=== PATIENT | female | born 1985 | race American Indian/Alaskan Native ===

== ENCOUNTER 2018-09-08 13:01 | Observation (INO) | payer MEDICARE, MEDICAID ==
--- NOTE | 2018-09-08 14:01 | C.PDOC ---
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 Patient describes headache as a pulling sensation over her left eye. Patient states that she was in [place] visiting family over the past month at which time she ran out of her medication Keppra and began taking another medication of unknown name in [place]. She states that she has never had a seizure, but was taking Keppra as a precaution following her stroke. She also notes burning mid CP and involuntary tongue curling. Patient wears a brace on her left leg and arm is contracted as a result of her stroke. Patient denies any SOB, nausea, vomiting, diarrhea, or dizziness. Time Seen by Provider: 09/08/18 13:49 Chief Complaint (Nursing): Dizziness/Lightheaded History Per: Patient History/Exam Limitations: no limitations Onset/Duration Of Symptoms: Days (1 month ) Current Symptoms Are (Timing): Still Present Recent travel outside of the [place]: Yes ([place]) Additional History Per: Patient Past Medical History Reviewed: Historical Data, Nursing Documentation, Vital Signs Vital Signs: Last Vital Signs Temp 98.5 F 09/08/18 13:10 Pulse 103 H 09/08/18 13:10 Resp 20 09/08/18 13:10 BP 158/115 H 09/08/18 13:10 Pulse Ox 100 09/08/18 13:10 - Medical History PMH: CVA (2013) Denies: Chronic Kidney Disease Surgical History: No Surg Hx Family History: States: No Known Family Hx - Social History Hx Tobacco Use: No Hx Alcohol Use: No Hx Substance Use: No - Immunization History Hx Influenza Vaccination: No Hx Pneumococcal Vaccination: No Review Of Systems Cardiovascular: Positive for: Chest Pain (burning mid chest ) Respiratory: Negative for: Shortness of Breath Gastrointestinal: Negative for: Nausea, Vomiting, Diarrhea Neurological: Positive for: Headache (pulling sensation over left eye). Negative for: Dizziness Physical Exam - Physical Exam Appears: Non-toxic, Other (Anxious and tearful ) Skin: Normal Color, Warm, Dry Head: Atraumatic, Normacephalic Eye(s): bilateral: Normal Inspection Ear(s): Bilateral: Normal Nose: Normal Oral Mucosa: Moist Neck: Normal ROM, Supple Chest: Symmetrical, No Deformity Cardiovascular: Rhythm Regular, No Murmur Respiratory: Normal Breath Sounds, No Rales, No Rhonchi, No Wheezing Gastrointestinal/Abdominal: Soft, No Tenderness, No Guarding, No Rebound, Other (obese) Neurological/Psych: Oriented x3, Other (nuerologically diminshed use of left arm and left leg ) ED Course And Treatment - Laboratory Results Result Diagrams: 09/08/18 14:46 09/08/18 15:30 ECG Rhythm: Sinus Tachycardia Interpretation Of ECG: No ST elevation or depression Rate From EC O2 Sat by Pulse Oximetry: 100 (on RA) Pulse Ox Interpretation: Normal - CT Scan/US CT Head Other Rad Studies (CT/US): Read By Radiologist, Radiology Report Reviewed CT/US Interpretation: IMPRESSION: No acute intracranial findings appreciable at this time by standard CT criteria. Follow-up CT or MRI are available if clinically warranted. Chronic infarct of subdistribution right MCA reiterated. Medical Decision Making Medical Decision Making: Plan: CAT Head, EKG, Bloodwork, Urinalysis ordered and reviewed. Norvasc 10mg PO and IV Fluids administered. Discussed with Dr. Hurd. Agreed that patient had odd presentation and is requesting to admit to OBS under hospitalist with Dr. Christie ([employer]) and (Neurologist). Impression: Rule out stroke Manage hypertension Evaluated for acute coronary syndrome Obs for 24 hours Disposition Discussed With DrElin: Wes Bartholomew - Disposition Disposition: HOSPITALIZED Disposition Time: 16:05 Condition: GUARDED Forms: [facility] (Sammarinese) - POA Present On Arrival: None - Clinical Impression Clinical Impression: Hypertensive urgency - Scribe Statement The provider has reviewed the documentation as recorded by the Josieibjairo Nava All medical record entries made by the Josieibjairo were at my direction and personally dictated by me. I have reviewed the chart and agree that the record accurately reflects my personal performance of the history, physical exam, medical decision making, and the department course for this patient. I have also personally directed, reviewed, and agree with the discharge instructions and disposition. Decision To Admit - Pt Status Changed To: Hospital Disposition Of: Observation - InPatient: Physician Admission Certification: I certify that this patient requires 2 or more midnights of care for the following reason:: hypertensive urgency with head ache and chest pain - . Bed Request Type: Telemetry Patient Diagnosis: Hypertensive urgency
[2018-09-08] MEDS ORDERED: Sodium Chloride 0.9% 1,000 ML IV SCH (14:15)
--- NOTE | 2018-09-08 14:43 | CT ---
Date of service: 09/08/2018 PROCEDURE: CT HEAD WITHOUT CONTRAST. HISTORY: htn, head ache COMPARISON: Brain MRI without and with contrast 02/24/2014. TECHNIQUE: Axial computed tomography images were obtained through the head/brain without intravenous contrast. Radiation dose: Total exam DLP = 1197.85 mGy-cm. This CT exam was performed using one or more of the following dose reduction techniques: Automated exposure control, adjustment of the mA and/or kV according to patient size, and/or use of iterative reconstruction technique. FINDINGS: HEMORRHAGE: No intracranial hemorrhage. BRAIN: Chronic lobar infarction at the right MCA distribution is reiterated without significant interval change. No positive mass effect is appreciated although, instead there is ex vacuo expansion of the right lateral ventricle mildly and limited rightward shift of the midline structures due to volume loss of the right cerebral hemisphere and a sub distribution of the right MCA. Posterior fossa contents are stable and unremarkable. Small bilateral basal ganglia calcifications are reiterated. No suspicious extra-axial fluid collection is identified. VENTRICLES: Unremarkable. No hydrocephalus. CALVARIUM: Unremarkable. PARANASAL SINUSES: Unremarkable as visualized. No significant inflammatory changes. MASTOID AIR CELLS: Unremarkable as visualized. No inflammatory changes. OTHER FINDINGS: None. IMPRESSION: No acute intracranial findings appreciable at this time by standard CT criteria. Follow-up CT or MRI are available if clinically warranted. Chronic infarct of subdistribution right MCA reiterated.
[2018-09-08 14:48] LABS: SQUAMOUS EPITHIAL 5 /hpf (0-5); URINE BILIRUBIN NEGATIVE (NEGATIVE); URINE BLOOD NEGATIVE (NEGATIVE); URINE CLARITY Hazy (Clear); URINE COLOR Yellow (YELLOW); URINE GLUCOSE (UA) NORMAL (Normal); URINE LEUKOCYTE ESTERASE NEG Leu/uL (Negative); URINE PROTEIN 1+ mg/dL (NEGATIVE); URINE UROBILINOGEN NORMAL mg/dL (0.2-1.0)
[2018-09-08 14:50] LABS: BASO # 0.1 K/uL (0.0-0.2); BASO % 1.1 % (0.0-2.0); EOS # 0.1 K/uL (0.0-0.7); EOS % 1.6 % (0.0-4.0); HEMOGLOBIN 12.4 g/dL (11.0-16.0); LYMPH # 1.8 K/uL (1.0-4.3); LYMPH % 34.2 % (20.0-40.0); MEAN CORPUSCULAR HEMOGLOBIN 27.6 pg (27.0-31.0); MEAN CORPUSCULAR HGB CONC 31.9 g/dL (33.0-37.0); MEAN PLATELET VOLUME 8.6 fL (7.2-11.7); MONO # 0.4 K/uL (0.0-0.8); MONO % 8.2 % (0.0-10.0); NEUT # 2.8 K/uL (1.8-7.0); NEUT % 54.9 % (50.0-75.0); NRBC % 0.1 % (0.0-2.0); RBC 4.5 Mil/uL (3.80-5.20); RED CELL DISTRIBUTION WIDTH 13.8 % (11.5-14.5); WHITE BLOOD COUNT 5.2 K/uL (4.8-10.8)
[2018-09-08 14:56] LABS: MEAN CELL VOLUME 86.6 fL (81.0-99.0)
[2018-09-08 15:09] LABS: BARBITURATES, UR NEGATIVE (NEGATIVE); BENZODIAZEPINES, UR NEGATIVE (NEGATIVE); OPIATES, UR NEGATIVE (NEGATIVE); PHENCYCLIDINE, UR NEGATIVE (NEGATIVE)
[2018-09-08 15:33] LABS: INR 1.1
[2018-09-08 15:40] LABS: ALB/GLOB RATIO 1.2 (1.0-2.1); ALBUMIN 4.7 g/dL (3.5-5.0); BLOOD UREA NITROGEN 11 mg/dL (7-17); GFR NON-AFRICAN AMERICAN > 60
[2018-09-08 15:41] LABS: ALT/SGPT 20 U/L (9-52); AST/SGOT 34 U/L (14-36)
--- NOTE | 2018-09-08 17:17 | CP.PCM.HP ---
<Wolf Khan - Last Filed: 09/08/18 17:36> History of Present Illness - History of Present Illness History of Present Illness: PGY-1 Medicine H&P for Dr. Bartholomew's service CC: elevated blood pressure at Dr. Hurd's office HPI: Patient is a 32 yo female w/ PMH of stroke comes to ED for evaluation of elevated blood pressure, chest pain, dizziness, and headache. Patient states she was at Dr. Hurd's office who checked her blood pressure and it was above 180 and he requested patient come to emergency room. During examination, patient stated she was dizzy but resolved on its own within a few minutes. Patient's pmd asked patient be evaulated by hospital neurologist and internal consultant for the chest pain she complained of during triage. Patient denied headaches, chest pain, sob, n/v, constipation or diarrhea, and dysuria. PMH- Stroke PSH- Denies FH- Denies Meds- Aspirin 81mg, Keppra 500 bid Alls- NKDA Social- Denies etoh, tobacco, and drug use PMD- Dr. Hurd Code- Full code Present on Admission - Present on Admission Any Indicators Present on Admission: No Review of Systems - Review of Systems Review of Systems: 12 point ROS obtained and noted as in HPI Past Patient History - Past Medical History & Family History Past Medical History?: Yes - Past Social History Smoking Status: Never Smoked - CARDIAC Hx Cardiac Disorders: No - PULMONARY Hx Respiratory Disorders: No - NEUROLOGICAL Hx Neurological Disorder: Yes HX Cerebrovascular Accident: Yes (Left sided residual weakness) - HEENT Hx HEENT Problems: No - RENAL Hx Chronic Kidney Disease: No - ENDOCRINE/METABOLIC Hx Endocrine Disorders: No - HEMATOLOGICAL/ONCOLOGICAL Hx Blood Disorders: No - INTEGUMENTARY Hx Dermatological Problems: No - MUSCULOSKELETAL/RHEUMATOLOGICAL Hx Musculoskeletal Disorders: No - GASTROINTESTINAL Hx Gastrointestinal Disorders: No - GENITOURINARY/GYNECOLOGICAL Hx Genitourinary Disorders: Yes Other/Comment: fibroid uterus - PSYCHIATRIC Hx Substance Use: No - SURGICAL HISTORY Hx Surgeries: No - ANESTHESIA Hx Anesthesia: Yes Hx Anesthesia Reactions: No Hx Malignant Hyperthermia: No Meds Allergies/Adverse Reactions: Allergies Allergy/AdvReac Type Severity Reaction Status Date / Time No Known Allergies Allergy Verified 12/19/13 17:53 Physical Exam - Constitutional Appears: Non-toxic, No Acute Distress - Head Exam Head Exam: NORMAL INSPECTION, NORMOCEPHALIC - Eye Exam Eye Exam: EOMI, Normal appearance. absent: Nystagmus, Scleral icterus - ENT Exam ENT Exam: Mucous Membranes Moist - Respiratory Exam Respiratory Exam: Clear to Auscultation Bilateral, NORMAL BREATHING PATTERN. absent: Rales, Rhonchi, Wheezes - Cardiovascular Exam Cardiovascular Exam: REGULAR RHYTHM, +S1, +S2. absent: Tachycardia - GI/Abdominal Exam GI & Abdominal Exam: Normal Bowel Sounds, Soft. absent: Diminished Bowel Sounds, Distended, Firm, Guarding, Tenderness - Extremities Exam Additional comments: brace on left leg left arm internally rotated and flexed muscle strength testing in bilateral hips 5/5, bilateral arms 5/5, plantar/dorsiflexion 4/5 - Back Exam Back exam: NORMAL INSPECTION. absent: CVA tenderness (L), CVA tenderness (R) - Neurological Exam Neurological exam: Alert, Oriented x3 - Psychiatric Exam Psychiatric exam: Normal Affect, Normal Mood - Skin Skin Exam: Dry, Intact, Normal Color Results - Vital Signs Recent Vital Signs: Last Vital Signs Temp 98.5 F 09/08/18 13:10 Pulse 67 09/08/18 16:58 Resp 16 09/08/18 16:58 BP 159/105 H 09/08/18 16:58 Pulse Ox 100 09/08/18 16:58 - Labs Result Diagrams: 09/08/18 14:46 09/08/18 15:30 Labs: Laboratory Results - last 24 hr 09/08/18 09/08/18 09/08/18 14:16 14:25 14:41 WBC RBC Hgb Hct MCV MCH MCHC RDW Plt Count MPV Neut % (Auto) Lymph % (Auto) [place] % (Auto) Eos % (Auto) Baso % (Auto) Neut # (Auto) Lymph # (Auto) [place] # (Auto) Eos # (Auto) Baso # (Auto) PT 12.0 INR 1.1 APTT 30 Sodium Potassium Chloride Carbon Dioxide Anion Gap BUN Creatinine Est GFR ( Amer) Est GFR (Non-Af Amer) POC Glucose (mg/dL) 114 H Random Glucose Calcium Phosphorus Total Bilirubin AST ALT Alkaline Phosphatase Troponin I Total Protein Albumin Globulin Albumin/Globulin Ratio Free T4 Urine Color Yellow Urine Clarity Hazy Urine pH 6.0 Ur Specific [place] 1.019 Urine Protein 1+ H Urine Glucose (UA) Normal Urine Ketones Negative Urine Blood Negative Urine Nitrate Negative Urine Bilirubin Negative Urine Urobilinogen Normal Ur Leukocyte Esterase Neg Urine WBC (Auto) 2 Urine RBC (Auto) 3 Ur Squamous Epith Cells 5 Urine Opiates Screen Urine Methadone Screen Ur Barbiturates Screen Ur Phencyclidine Scrn Ur Amphetamines Screen U Benzodiazepines Scrn U Oth Cocaine Metabols U Cannabinoids Screen Alcohol, Quantitative 09/08/18 09/08/18 09/08/18 14:41 14:46 15:30 WBC 5.2 RBC 4.50 Hgb 12.4 Hct 39.0 MCV 86.6 D MCH 27.6 MCHC 31.9 L RDW 13.8 Plt Count 399 MPV 8.6 Neut % (Auto) 54.9 Lymph % (Auto) 34.2 [place] % (Auto) 8.2 Eos % (Auto) 1.6 Baso % (Auto) 1.1 Neut # (Auto) 2.8 Lymph # (Auto) 1.8 [place] # (Auto) 0.4 Eos # (Auto) 0.1 Baso # (Auto) 0.1 PT INR APTT Sodium 140 Potassium 3.8 Chloride 106 Carbon Dioxide 25 Anion Gap 13 BUN 11 Creatinine 0.8 Est GFR ( Amer) > 60 Est GFR (Non-Af Amer) > 60 POC Glucose (mg/dL) Random Glucose 108 H Calcium 9.0 Phosphorus 2.8 Total Bilirubin 0.6 AST 34 ALT 20 Alkaline Phosphatase 80 Troponin I 0.0150 Total Protein 8.6 H Albumin 4.7 Globulin 3.9 Albumin/Globulin Ratio 1.2 Free T4 Urine Color Urine Clarity Urine pH Ur Specific [place] Urine Protein Urine Glucose (UA) Urine Ketones Urine Blood Urine Nitrate Urine Bilirubin Urine Urobilinogen Ur Leukocyte Esterase Urine WBC (Auto) Urine RBC (Auto) Ur Squamous Epith Cells Urine Opiates Screen Negative Urine Methadone Screen Negative Ur Barbiturates Screen Negative Ur Phencyclidine Scrn Negative Ur Amphetamines Screen Negative U Benzodiazepines Scrn Negative U Oth Cocaine Metabols Negative U Cannabinoids Screen Negative Alcohol, Quantitative < 10 09/08/18 16:41 WBC RBC Hgb Hct MCV MCH MCHC RDW Plt Count MPV Neut % (Auto) Lymph % (Auto) [place] % (Auto) Eos % (Auto) Baso % (Auto) Neut # (Auto) Lymph # (Auto) [place] # (Auto) Eos # (Auto) Baso # (Auto) PT INR APTT Sodium Potassium Chloride Carbon Dioxide Anion Gap BUN Creatinine Est GFR ( Amer) Est GFR (Non-Af Amer) POC Glucose (mg/dL) Random Glucose Calcium Phosphorus Total Bilirubin AST ALT Alkaline Phosphatase Troponin I Total Protein Albumin Globulin Albumin/Globulin Ratio Free T4 0.94 Urine Color Urine Clarity Urine pH Ur Specific [place] Urine Protein Urine Glucose (UA) Urine Ketones Urine Blood Urine Nitrate Urine Bilirubin Urine Urobilinogen Ur Leukocyte Esterase Urine WBC (Auto) Urine RBC (Auto) Ur Squamous Epith Cells Urine Opiates Screen Urine Methadone Screen Ur Barbiturates Screen Ur Phencyclidine Scrn Ur Amphetamines Screen U Benzodiazepines Scrn U Oth Cocaine Metabols U Cannabinoids Screen Alcohol, Quantitative Assessment & Plan - Assessment and Plan (Free Text) Assessment: Patient is a 32 yo female w/ PMH of stroke admitted to hospital for hypertensive urgency. HTN urgency DBP>110, no evidence of end organ damage on labs Norvasc 10mg x 1 given in ed Norvasc 10mg daily starting in AM repeat cbc/cmp in am headache, dizziness, and chest pain resolved Chest pain Cardiology Consulted as per Dr. Hurd EKG normal sinus rhythm, Initial troponin negative EKG x 2 pending, Troponin x 2 pending Hx of stroke Neurology Consulted as per Dr. Hurd Aspirin 81mg po daily Keppra 500mg po bid ppx CT head negative for acute stroke, shows old stroke (see full report) GI ppx: Pepcid 20mg po DVT ppx: Heparin 5000 units q12 Tylenol PRN for headaches PGY-1 Wolf Khan Medical Management discussed with Dr. Bartholomew <Wes Bartholomew - Last Filed: 09/08/18 19:08> Results - Vital Signs Recent Vital Signs: Last Vital Signs Temp 98.5 F 09/08/18 13:10 Pulse 67 09/08/18 16:58 Resp 16 09/08/18 16:58 BP 159/105 H 09/08/18 16:58 Pulse Ox 100 09/08/18 16:58 - Labs Result Diagrams: 09/08/18 14:46 09/08/18 15:30 Labs: Laboratory Results - last 24 hr 09/08/18 09/08/18 09/08/18 14:16 14:25 14:41 WBC RBC Hgb Hct MCV MCH MCHC RDW Plt Count MPV Neut % (Auto) Lymph % (Auto) [place] % (Auto) Eos % (Auto) Baso % (Auto) Neut # (Auto) Lymph # (Auto) [place] # (Auto) Eos # (Auto) Baso # (Auto) PT 12.0 INR 1.1 APTT 30 Sodium Potassium Chloride Carbon Dioxide Anion Gap BUN Creatinine Est GFR ( Amer) Est GFR (Non-Af Amer) POC Glucose (mg/dL) 114 H Random Glucose Calcium Phosphorus Total Bilirubin AST ALT Alkaline Phosphatase Troponin I Total Protein Albumin Globulin Albumin/Globulin Ratio Free T4 TSH 3rd Generation Urine Color Yellow Urine Clarity Hazy Urine pH 6.0 Ur Specific [place] 1.019 Urine Protein 1+ H Urine Glucose (UA) Normal Urine Ketones Negative Urine Blood Negative Urine Nitrate Negative Urine Bilirubin Negative Urine Urobilinogen Normal Ur Leukocyte Esterase Neg Urine WBC (Auto) 2 Urine RBC (Auto) 3 Ur Squamous Epith Cells 5 Urine Opiates Screen Urine Methadone Screen Ur Barbiturates Screen Ur Phencyclidine Scrn Ur Amphetamines Screen U Benzodiazepines Scrn U Oth Cocaine Metabols U Cannabinoids Screen Alcohol, Quantitative 09/08/18 09/08/18 09/08/18 14:41 14:46 15:30 WBC 5.2 RBC 4.50 Hgb 12.4 Hct 39.0 MCV 86.6 D MCH 27.6 MCHC 31.9 L RDW 13.8 Plt Count 399 MPV 8.6 Neut % (Auto) 54.9 Lymph % (Auto) 34.2 [place] % (Auto) 8.2 Eos % (Auto) 1.6 Baso % (Auto) 1.1 Neut # (Auto) 2.8 Lymph # (Auto) 1.8 [place] # (Auto) 0.4 Eos # (Auto) 0.1 Baso # (Auto) 0.1 PT INR APTT Sodium 140 Potassium 3.8 Chloride 106 Carbon Dioxide 25 Anion Gap 13 BUN 11 Creatinine 0.8 Est GFR ( Amer) > 60 Est GFR (Non-Af Amer) > 60 POC Glucose (mg/dL) Random Glucose 108 H Calcium 9.0 Phosphorus 2.8 Total Bilirubin 0.6 AST 34 ALT 20 Alkaline Phosphatase 80 Troponin I 0.0150 Total Protein 8.6 H Albumin 4.7 Globulin 3.9 Albumin/Globulin Ratio 1.2 Free T4 TSH 3rd Generation 3.79 Urine Color Urine Clarity Urine pH Ur Specific [place] Urine Protein Urine Glucose (UA) Urine Ketones Urine Blood Urine Nitrate Urine Bilirubin Urine Urobilinogen Ur Leukocyte Esterase Urine WBC (Auto) Urine RBC (Auto) Ur Squamous Epith Cells Urine Opiates Screen Negative Urine Methadone Screen Negative Ur Barbiturates Screen Negative Ur Phencyclidine Scrn Negative Ur Amphetamines Screen Negative U Benzodiazepines Scrn Negative U Oth Cocaine Metabols Negative U Cannabinoids Screen Negative Alcohol, Quantitative < 10 09/08/18 16:41 WBC RBC Hgb Hct MCV MCH MCHC RDW Plt Count MPV Neut % (Auto) Lymph % (Auto) [place] % (Auto) Eos % (Auto) Baso % (Auto) Neut # (Auto) Lymph # (Auto) [place] # (Auto) Eos # (Auto) Baso # (Auto) PT INR APTT Sodium Potassium Chloride Carbon Dioxide Anion Gap BUN Creatinine Est GFR ( Amer) Est GFR (Non-Af Amer) POC Glucose (mg/dL) Random Glucose Calcium Phosphorus Total Bilirubin AST ALT Alkaline Phosphatase Troponin I Total Protein Albumin Globulin Albumin/Globulin Ratio Free T4 0.94 TSH 3rd Generation Urine Color Urine Clarity Urine pH Ur Specific [place] Urine Protein Urine Glucose (UA) Urine Ketones Urine Blood Urine Nitrate Urine Bilirubin Urine Urobilinogen Ur Leukocyte Esterase Urine WBC (Auto) Urine RBC (Auto) Ur Squamous Epith Cells Urine Opiates Screen Urine Methadone Screen Ur Barbiturates Screen Ur Phencyclidine Scrn Ur Amphetamines Screen U Benzodiazepines Scrn U Oth Cocaine Metabols U Cannabinoids Screen Alcohol, Quantitative Attending/Attestation - Attestation I have personally seen and examined this patient.: Yes I have fully participated in the care of the patient.: Yes I have reviewed all pertinent clinical information: Yes Notes (Text): 09/08/18 19:07 Patient was seen and examined in the ER with resident Dr. Khan. History, Physical, Assessment and Plan, and orders were gone over with Dr. Khan. Plan of care was also explained to patient. Wes Bartholomew D.O.
[2018-09-08] MEDS ORDERED: Labetalol 25mg/5ml Syringe IVP ONE (19:00)
[2018-09-09 00:39] VITALS: RESP 20
[2018-09-09 04:04] LABS: BASO % 0.6 % (0.0-2.0); EOS % 0.9 % (0.0-4.0); HEMOGLOBIN 12.4 g/dL (11.0-16.0); LYMPH # 1.5 K/uL (1.0-4.3); LYMPH % 28.1 % (20.0-40.0); MEAN CELL VOLUME 86.3 fL (81.0-99.0); MEAN CORPUSCULAR HEMOGLOBIN 27.7 pg (27.0-31.0); MEAN CORPUSCULAR HGB CONC 32.1 g/dL (33.0-37.0); MEAN PLATELET VOLUME 8.2 fL (7.2-11.7); MONO # 0.5 K/uL (0.0-0.8); MONO % 8.9 % (0.0-10.0); NEUT # 3.3 K/uL (1.8-7.0); NEUT % 61.5 % (50.0-75.0); NRBC % 0.1 % (0.0-2.0); RBC 4.48 Mil/uL (3.80-5.20); RED CELL DISTRIBUTION WIDTH 13.7 % (11.5-14.5); WHITE BLOOD COUNT 5.3 K/uL (4.8-10.8)
[2018-09-09 04:37] LABS: LDL CHOLESTEROL 127 mg/dL (0-129)
[2018-09-09 04:51] LABS: ALB/GLOB RATIO 1.3 (1.0-2.1); ALBUMIN 4.2 g/dL (3.5-5.0); ALT/SGPT 20 U/L (9-52); AST/SGOT 20 U/L (14-36); BLOOD UREA NITROGEN 9 mg/dL (7-17); CALCIUM 8.9 mg/dl (8.6-10.4); GFR NON-AFRICAN AMERICAN > 60; HDL CHOLESTEROL 44 mg/dL (30-70)
[2018-09-09 07:44] VITALS: TEMP 98.6; O2SAT 100
[2018-09-09 09:04] VITALS: BP 140/75; PULSE 96
--- NOTE | 2018-09-09 11:40 | CARD ---
APPROVED REPORT Date of service: 09/09/2018 EKG Measurement Heart [id number] <Conclusion> Sinus tachycardia Nonspecific T wave abnormality Abnormal ECG
--- NOTE | 2018-09-09 11:42 | CARD ---
APPROVED REPORT Date of service: 09/08/2018 EKG Measurement Heart [id number] <Conclusion> Sinus tachycardia Otherwise normal ECG
--- NOTE | 2018-09-09 14:05 | CP.PCM.DIS ---
Provider - Provider Date of Admission: 09/08/18 16:06 Attending physician: Wes Bartholomew MD Time Spent in preparation of Discharge (in minutes): 45 Diagnosis - Discharge Diagnosis (1) Hypertensive urgency Status: Acute Hospital Course - Lab Results Lab Results: Most Recent Lab Values WBC 5.3 K/uL (4.8-10.8) 09/09/18 04:01 RBC 4.48 Mil/uL (3.80-5.20) 09/09/18 04:01 Hgb 12.4 g/dL (11.0-16.0) 09/09/18 04:01 Hct 38.7 % (34.0-47.0) 09/09/18 04:01 MCV 86.3 fL (81.0-99.0) 09/09/18 04:01 MCH 27.7 pg (27.0-31.0) 09/09/18 04:01 MCHC 32.1 g/dL (33.0-37.0) L 09/09/18 04:01 RDW 13.7 % (11.5-14.5) 09/09/18 04:01 Plt Count 357 K/uL (130-400) 09/09/18 04:01 MPV 8.2 fL (7.2-11.7) 09/09/18 04:01 Neut % (Auto) 61.5 % (50.0-75.0) 09/09/18 04:01 Lymph % (Auto) 28.1 % (20.0-40.0) 09/09/18 04:01 [place] % (Auto) 8.9 % (0.0-10.0) 09/09/18 04:01 Eos % (Auto) 0.9 % (0.0-4.0) 09/09/18 04:01 Baso % (Auto) 0.6 % (0.0-2.0) 09/09/18 04:01 Neut # (Auto) 3.3 K/uL (1.8-7.0) 09/09/18 04:01 Lymph # (Auto) 1.5 K/uL (1.0-4.3) 09/09/18 04:01 [place] # (Auto) 0.5 K/uL (0.0-0.8) 09/09/18 04:01 Eos # (Auto) 0.0 K/uL (0.0-0.7) 09/09/18 04:01 Baso # (Auto) 0.0 K/uL (0.0-0.2) 09/09/18 04:01 PT 12.0 SECONDS (9.7-12.2) 09/08/18 14:25 INR 1.1 09/08/18 14:25 APTT 30 SECONDS (21-34) 09/09/18 04:01 Sodium 140 mmol/L (132-148) 09/09/18 04:05 Potassium 3.6 mmol/L (3.6-5.2) 09/09/18 04:05 Chloride 107 mmol/L (98-107) 09/09/18 04:05 Carbon Dioxide 25 mmol/L (22-30) 09/09/18 04:05 Anion Gap 11 (10-20) 09/09/18 04:05 BUN 9 mg/dL (7-17) 09/09/18 04:05 Creatinine 0.7 mg/dL (0.7-1.2) 09/09/18 04:05 Est GFR ( Amer) > 60 09/09/18 04:05 Est GFR (Non-Af Amer) > 60 09/09/18 04:05 POC Glucose (mg/dL) 114 mg/dL (65-110) H 09/08/18 14:16 Random Glucose 107 mg/dL (65-105) H 09/09/18 04:05 Calcium 8.9 mg/dl (8.6-10.4) 09/09/18 04:05 Phosphorus 4.2 mg/dL (2.5-4.5) 09/09/18 04:05 Magnesium 1.8 mg/dL (1.6-2.3) 09/09/18 04:05 Total Bilirubin 0.3 mg/dL (0.2-1.3) 09/09/18 04:05 AST 20 U/L (14-36) 09/09/18 04:05 ALT 20 U/L (9-52) 09/09/18 04:05 Alkaline Phosphatase 72 U/L (38-126) 09/09/18 04:05 Troponin I < 0.0120 ng/mL (0.00-0.120) 09/09/18 04:05 Total Protein 7.5 g/dL (6.3-8.3) 09/09/18 04:05 Albumin 4.2 g/dL (3.5-5.0) 09/09/18 04:05 Globulin 3.3 gm/dL (2.2-3.9) 09/09/18 04:05 Albumin/Globulin Ratio 1.3 (1.0-2.1) 09/09/18 04:05 Triglycerides 124 mg/dL (0-149) 09/09/18 04:05 Cholesterol 217 mg/dL (0-199) H 09/09/18 04:05 LDL Cholesterol Direct 127 mg/dL (0-129) 09/09/18 04:05 HDL Cholesterol 44 mg/dL (30-70) 09/09/18 04:05 Free T4 0.94 ng/dL (0.78-2.19) 09/08/18 16:41 TSH 3rd Generation 3.79 mIU/L (0.46-4.68) 09/08/18 15:30 Urine Color Yellow (YELLOW) 09/08/18 14:41 Urine Clarity Hazy (Clear) 09/08/18 14:41 Urine pH 6.0 (5.0-8.0) 09/08/18 14:41 Ur Specific [place] 1.019 (1.003-1.030) 09/08/18 14:41 Urine Protein 1+ mg/dL (NEGATIVE) H 09/08/18 14:41 Urine Glucose (UA) Normal mg/dL (Normal) 09/08/18 14:41 Urine Ketones Negative mg/dL (NEGATIVE) 09/08/18 14:41 Urine Blood Negative (NEGATIVE) 09/08/18 14:41 Urine Nitrate Negative (NEGATIVE) 09/08/18 14:41 Urine Bilirubin Negative (NEGATIVE) 09/08/18 14:41 Urine Urobilinogen Normal mg/dL (0.2-1.0) 09/08/18 14:41 Ur Leukocyte Esterase Neg Jessica/uL (Negative) 09/08/18 14:41 Urine WBC (Auto) 2 /hpf (0-5) 09/08/18 14:41 Urine RBC (Auto) 3 /hpf (0-3) 09/08/18 14:41 Ur Squamous Epith Cells 5 /hpf (0-5) 09/08/18 14:41 Urine Opiates Screen Negative (NEGATIVE) 09/08/18 14:41 Urine Methadone Screen Negative (NEGATIVE) 09/08/18 14:41 Ur Barbiturates Screen Negative (NEGATIVE) 09/08/18 14:41 Ur Phencyclidine Scrn Negative (NEGATIVE) 09/08/18 14:41 Ur Amphetamines Screen Negative (NEGATIVE) 09/08/18 14:41 U Benzodiazepines Scrn Negative (NEGATIVE) 09/08/18 14:41 U Oth Cocaine Metabols Negative (NEGATIVE) 09/08/18 14:41 U Cannabinoids Screen Negative (NEGATIVE) 09/08/18 14:41 Alcohol, Quantitative < 10 mg/dl (0-10) 09/08/18 15:30 - Hospital Course Hospital Course: Upon Admission Patient is a 32 yo female w/ PMH of stroke comes to ED for evaluation of elevated blood pressure, chest pain, dizziness, and headache. Patient states she was at Dr. Hurd's office who checked her blood pressure and it was above 180 and he requested patient come to emergency room. During examination, patient stated she was dizzy but resolved on its own within a few minutes. Patient's pmd asked patient be evaulated by hospital neurologist and front end specialist for the chest pain she complained of during triage. Patient denied headaches, chest pain, sob, n/v, constipation or diarrhea, and dysuria. Hospital Course Patient is a 32 yo AA female admitted for HTN urgency. Patient was started on amlodipine in ED. Patient's blood pressure decreased about 20 percent. Next day patient was discharged after repeat blood pressures were under control Discharge Plan The following instructions were explained to patient and a copy will need to be provided to her upon discharge: 1). Schedule follow up with your Primary Care Physician Dr. Hurd to take place in the next 7 to 14 days for a remeasurement of your blood pressure and for coordination of your health care. 2). Follow up with your Neurologist as already planned on 09/21/18 for your history of Stroke and Seizure Prophylaxis. 3). Please have the following prescriptions filled at your pharmacy on your way home from the hospital and take as directed: Aspirin 81 mg, 1 tablet by mouth 1x/day (8 AM) Keppra 500 mg, 1 tablet by mouth 2x/day (8 AM and 8 PM) Atorvastatin 10 mg, 1 tablet by mouth 1x/day (8 PM) Norvasc 10 mg, 1 tablet by mouth 1x/day (8 AM) 4). 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 Good luck and good work to you. Please take care. Wes Bartholomew D.O. Discharge Exam - Additional Findings Additional findings: - Constitutional Appears: Non-toxic, No Acute Distress - Head Exam Head Exam: NORMAL INSPECTION, NORMOCEPHALIC - Eye Exam Eye Exam: EOMI, Normal appearance. absent: Nystagmus, Scleral icterus - ENT Exam ENT Exam: Mucous Membranes Moist - Respiratory Exam Respiratory Exam: Clear to Auscultation Bilateral, NORMAL BREATHING PATTERN. absent: Rales, Rhonchi, Wheezes - Cardiovascular Exam Cardiovascular Exam: REGULAR RHYTHM, +S1, +S2. absent: Tachycardia - GI/Abdominal Exam GI & Abdominal Exam: Normal Bowel Sounds, Soft. absent: Diminished Bowel Sounds, Distended, Firm, Guarding, Tenderness - Extremities Exam Additional comments: brace on left leg left arm internally rotated and flexed muscle strength testing in bilateral hips 5/5, bilateral arms 5/5, plantar/dorsiflexion 4/5 - Back Exam Back exam: NORMAL INSPECTION. absent: CVA tenderness (L), CVA tenderness (R) - Neurological Exam Neurological exam: Alert, Oriented x3 - Psychiatric Exam Psychiatric exam: Normal Affect, Normal Mood - Skin Skin Exam: Dry, Intact, Normal Color Discharge Plan - Discharge Medications Prescriptions: amLODIPine [Norvasc] 10 mg PO DAILY #30 tab Aspirin [Aspirin Chewable] 81 mg PO DAILY #30 chew Atorvastatin [Lipitor] 10 mg PO DIN #30 tab levETIRAcetam [Keppra] 500 mg PO BID #60 tab - Follow Up Plan Condition: GUARDED Disposition: HOME/ ROUTINE Instructions: Chest Pain, High Blood Pressure (DC), Dizziness, Nonvertigo, (DC) Additional Instructions: The following instructions were explained to patient and a copy will need to be provided to her upon discharge: 1). Schedule follow up with your Primary Care Physician Dr. Hurd to take place in the next 7 to 14 days for a remeasurement of your blood pressure and for coordination of your health care. 2). Follow up with your Neurologist as already planned on 09/21/18 for your history of Stroke and Seizure Prophylaxis. 3). Please have the following prescriptions filled at your pharmacy on your way home from the hospital and take as directed: Aspirin 81 mg, 1 tablet by mouth 1x/day (8 AM) Keppra 500 mg, 1 tablet by mouth 2x/day (8 AM and 8 PM) Atorvastatin 10 mg, 1 tablet by mouth 1x/day (8 PM) Norvasc 10 mg, 1 tablet by mouth 1x/day (8 AM) 4). 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 Good luck and good work to you. Please take care. Wes Bartholomew D.O. Referrals: Wes Bartholomew MD [Staff Provider] -
== END 2018-09-09 13:00 | disposition home or self-care (01) ==
LOC: C.ER 13:01 → C.9E 16:06 → C.5S 17:11
PROVIDERS: ADMIT Family Medicine; ATTEND Family Medicine
DX: I16.0 Hypertensive urgency (principal); I10 Essential (primary) hypertension; Z79.899 Other long term (current) drug therapy; Z86.73 Personal history of transient ischemic attack (TIA), and cerebral infarction without residual deficits
CPT/HCPCS: 36415; 70450; 80053; 80061; 81001; 81025; 82948; 83735; 84100; 84439; 84443; 84484; 85025; 85610; 85730; 93005; 99285; C9113; G0378; G0480; J7030